=== PATIENT | female | born 2000 | race Caucasian/White ===

== ENCOUNTER 2021-01-21 03:48 | Inpatient (IN) | payer OTHER ==
[~2021-01-21] VITALS: Ht 160 cm; Wt 66.2 kg
[~2021-01-21 03:48] MED LIST: FEOSOL325 MG PO; KEFLEX250 MG PO
[2021-01-21 05:08] LABS: BILIRUBIN NEGATIVE (NEGATIVE); BLOOD 1+ Ery/uL (NEGATIVE); CLARITY CLEAR (CLEAR); COLOR YELLOW (YELLOW); GLUCOSE (U) NORMAL (NORMAL); LEUKOCYTES 3+ Leu/uL (NEGATIVE); NITRITE NEGATIVE (NEGATIVE); PROTEIN NEGATIVE (NEGATIVE); UROBILINOGEN 0.2 mg/dL (0.2-1.0)
[2021-01-21 05:11] LABS: BACTERIA 2+; URINARY RBC RARE; URINARY WBC TNTC
[2021-01-21 05:12] LABS: SQUAMOUS EPITHELIAL CELLS >50
[2021-01-21 06:03] LABS: HCT 30.8 % (37.0-47.0); HGB 9.2 g/dl (12.5-16.0); MCH 22.9 pg (25.0-31.0); MCHC 29.9 g/dL (32.0-36.0); MCV 76.6 fL (78.0-100.0); MPV 9.4 fL (6.0-9.5); RBC 4.02 M/uL (4.20-5.40); RDW 14.6 % (11.5-14.0)
[2021-01-22 07:19] LABS: HCT 28.2 % (37.0-47.0); HGB 8.6 g/dL (12.5-16.0)
== END 2021-01-23 11:06 | disposition home or self-care (01) | DRG 806 ==
LOC: FOD 03:48 → FOB 03:49 → FOD 08:05 → FOB 08:06
PROVIDERS: ADMIT Obstetrics & Gynecology
PROC: 10E0XZZ Delivery of Products of Conception, External Approach (ICD-10-PCS; principal; 2021-01-21)
DX: O99.02 Anemia complicating childbirth (principal); D62 Acute posthemorrhagic anemia; Z37.0 Single live birth; Z3A.37 37 weeks gestation of pregnancy; Z20.822 Contact with and (suspected) exposure to COVID-19; O46.8X3 Other antepartum hemorrhage, third trimester; O99.344 Other mental disorders complicating childbirth; F41.9 Anxiety disorder, unspecified; Z90.89 Acquired absence of other organs
CPT/HCPCS: 36415; 81001; 85014; 85018; 86850; 86900; 86901; 87088; 90686; J2300; J2916; J7120; U0002